=== PATIENT | male | born 1995 | race Caucasian/White ===

== ENCOUNTER 2016-04-13 13:54 | Emergency (ER) | payer OTHER ==
[2016-04-13 14:44] LABS: MEAN CORPUSCULAR HEMOGLOBIN 30.6 pg (27.0-33.0); MEAN CORPUSCULAR HGB CONC 34.4 g/dl (32.0-36.5); MEAN CORPUSCULAR VOLUME 88.8 fl (80.0-96.0); RED CELL DISTRIBUTION WIDTH 11.6 % (11.5-14.5); WHITE BLOOD COUNT 6.1 K/mm3 (4.0-10.0)
[2016-04-13 15:01] LABS: AMPHETAMINES LEVEL URINE NEGATIVE (NEGATIVE); BENZODIAZEPINES URINE NEGATIVE (NEGATIVE); COCAINE METABOLITE URINE NEGATIVE (NEGATIVE); CONTROL LINE INT CTR LINE PRESENT; METHADONE URINE NEGATIVE (NEGATIVE); OPIATES URINE NEGATIVE (NEGATIVE); TRICYCLIC ANTIDEPRESS URINE NEGATIVE (NEGATIVE)
[2016-04-13 15:21] LABS: ALBUMIN 4.2 GM/DL (3.2-5.2); ALBUMIN/GLOBULIN RATIO 1.35 (1.00-1.93); ALKALINE PHOSPHATASE 71 U/L (45-117); ALT/SGPT 23 U/L (12-78); ANION GAP 7 MEQ/L (8-16); AST/SGOT 19 U/L (15-37); BILIRUBIN,DIRECT 0.1 MG/DL (0.0-0.2); BILIRUBIN,TOTAL 0.5 MG/DL (0.2-1.0); BLOOD UREA NITROGEN 13 MG/DL (7-18); CARBON DIOXIDE LEVEL 29 MEQ/L (21-32); CHLORIDE LEVEL 106 MEQ/L (98-107); CREATININE FOR GFR 0.87 MG/DL (0.70-1.30); GLUCOSE, FASTING 79 MG/DL (70-105); POTASSIUM SERUM 4.2 MEQ/L (3.5-5.1); SODIUM LEVEL 142 MEQ/L (136-145); TOTAL PROTEIN 7.3 GM/DL (6.4-8.2)
[2016-04-13] MEDS ORDERED: FLUO20CA9 PO (17:35)
[2016-04-13] MEDS ORDERED: CLON-412 PO (17:35)
--- NOTE | 2016-04-13 20:15 | EDDOCDS ---
Physician Documentation [facility] Name: Dominick Mauro Age: 20 yrs Sex: Male : 1995 Arrival Date: 04/13/2016 Time: 13:54 Bed 31 Private MD: Disposition: 04/13/16 19:49 Discharged to Home/Self Care. Impression: Adjustment disorder with depressed mood. - Condition is Stable. - Discharge Instructions: Depression, Adult. - Medication Reconciliation, Local Pharmacy Hours form. - Follow up: Referral list, As provided by PFS; When: Call to arrange an appointment; Reason: Recheck today's complaints, Continuance of care. - Problem is an acute exacerbation. - Symptoms have improved. - Notes: Return to the ED for any further concerns Historical: - Allergies: no known allergies; - Home Meds: 1. Prozac 20 mg oral cap 1 cap once daily 2. Klonopin 1 mg Oral TbDL 1 tab 3 times per day - PMHx: Depression; Bipolar disorder; - PSHx: none; - Social history: Smoking status: Patient uses tobacco products, heavy tobacco smoker. No barriers to communication noted, The patient speaks fluent Chinese, Speaks appropriately for age. - Family history: Not pertinent. - : The pt / caregiver states he / she is not on anticoagulants. Home medication list is obtained from the patient. - Exposure Risk Screening:: None identified. Vital Signs: 04/13 16:30 BP 149 / 70; Pulse 64; Resp 18; Temp 98.2; Pulse Ox 100% ; Weight 77.56 kg / 170.99 lbs rn1 (R); Height 6 ft. 0 in. (182.88 cm) (R); Pain 0/10; 20:13 BP 146 / 80; Pulse 62; Resp 16; Temp 97.0(O); Pulse Ox 99% on R/A; Pain 0/10; rw1 16:30 Body Mass Index 23.19 (77.56 kg, 182.88 cm) rn1 MDM: 14:10 Consult PFS/PSA/Drywall Taper ordered. pml 14:10 Consult PFS/PSA/Drywall Taper: Patient's case requires discussion with on-call pml Psychiatrist ordered. 14:10 PSA/PFS to call Nursing Public Relations Director, to enter patient data on [place] Safe Act if patient pml involuntarily admitted or transferred for SI or HI ordered. 14:10 Confirm accurate psychiatric medication list and times of last dosage ordered. pml 14:10 Detain Pt Until Medically/PFS Cleared ordered. pml 14:11 Acetaminophen Level Ordered. EDMS 14:11 Basic Metabolic Profile Ordered. EDMS 14:11 Complete Blood Count Ordered. EDMS 14:11 Drug Eval Toxicology ED Only Ordered. EDMS 14:11 Ethyl Alcohol (ethanol) Ordered. EDMS 14:11 Liver Profile Ordered. EDMS 14:11 Salicylate Level Ordered. EDMS 14:11 Thyroid Stimulating Hormone Ordered. EDMS 15:13 Vital Signs ordered. le 16:16 Financial registration complete. zo 16:18 Acetaminophen Level Reviewed. le 16:18 Basic Metabolic Profile Reviewed. le 16:18 Drug Eval Toxicology ED Only Reviewed. le 16:18 Salicylate Level Reviewed. le 16:18 Complete Blood Count Reviewed. le 16:18 Ethyl Alcohol (ethanol) Reviewed. le 16:18 Liver Profile Reviewed. le 16:18 Thyroid Stimulating Hormone Reviewed. le 16:18 [facility] Payment Agreement was scanned into [employer] and attached to record. zo 16:19 BED REQUEST+ADM ordered. EDMS 16:19 The patient has been medically cleared for psychiatric evaluation, admission and/or le transfer. 16:27 REGULAR DIET PLASTIC YATES+DIET ordered. EDMS Signatures: Dispatcher [employer] EDDC Clovis Prabhakar LPN LPN rw1 Sarah Pandya Lisa, HANDBAG PARTS CUTTER HANDBAG PARTS CUTTER Kaylynn Mahmood RN RN pml The chart was reviewed and I authenticate all verbal orders and agree with the evaluation and treatment provided.Corrections: (The following items were deleted from the chart) 14:12 14:05 Allergies: no known allergies; pml pml 14:12 14:05 Home Meds: Prozac Oral 1 cap once daily; pml pml Attachments: 16:18 [facility] Payment Agreement zo MTDD
--- NOTE | 2016-04-13 20:15 | EDDOCDS ---
Nurse's Notes [facility] Name: Dominick Mauro Age: 20 yrs Sex: Male : 1995 Arrival Date: 04/13/2016 Time: 13:54 Bed 31 Private MD: Diagnosis: Adjustment disorder with depressed mood Presentation: 04/13 14:02 Presenting complaint: Patient states: PD picked pt up for parole issues and pt voiced pml vague thoughts of SI ongoing over last week. stated he was planning on checking himself into [facility] today to PD - when pt was told he was being brought to [facility] for eval he began to deny SI. Mental Health Triage Level: Level 2: The patient displays active suicidal ideations. The patient was brought to the ED for evaluation because of a legal pickup order. Adult Sepsis Screening: The patient does not have new or worsening altered mentation. Patient's respiratory rate is less than 22. Systolic blood pressure is greater than 100. Patient has a qSOFA score of 0- Negative Sepsis Screen. Mental Health Triage Level: Level 2:. Suicide/Homicide risk assessment- The patient admits to and/or has been reported to be having suicidal ideations. The patient reports that he/she has not been admitted to an inpatient mental health facility in the last 30 days. The patient reports that he/she has a recent or current history of substance abuse. The patient reports that he/she has a prior history of suicide attempt and/or organized plan. The patient reports that he/she has not experienced a significant life altering event in the last 30 days. The patient reports that he/she has adequate social support. The patient reports he/she has no significant chronic medical condition(s). Status: Patient is not a meat service team member or dependent. Transition of care: patient was not received from another setting of care. 14:02 Acuity: HARMAN Level 3 pml 14:02 Method Of Arrival: Police Car pml Triage Assessment: 14:05 General: Appears in no apparent distress, comfortable, Behavior is appropriate for age, pml cooperative. Pain: Denies pain. HIV screening NA for this visit Offered previously. The patient is triaged at the bedside. See Assessment in Nurses Notes section of ED record. Neurological: Level of Consciousness is awake, alert, Oriented to person, place, time. Cardiovascular: Capillary refill < 3 seconds. Respiratory: Airway is patent Respiratory effort is even, unlabored. GI: Abdomen is non- distended. Derm: Skin is pink, warm & dry. Historical: - Allergies: no known allergies; - Home Meds: 1. Prozac 20 mg oral cap 1 cap once daily 2. Klonopin 1 mg Oral TbDL 1 tab 3 times per day - PMHx: Depression; Bipolar disorder; - PSHx: none; - Social history: Smoking status: Patient uses tobacco products, heavy tobacco smoker. No barriers to communication noted, The patient speaks fluent Spanish, Speaks appropriately for age. - Family history: Not pertinent. - : The pt / caregiver states he / she is not on anticoagulants. Home medication list is obtained from the patient. - Exposure Risk Screening:: None identified. Screenin:14 Screening information is obtained from the patient. Fall risk: No risks identified. pml Assistance ADL's: requires no assistance with activities of daily living. Abuse/DV Screen: The patient / caregiver reports he/she is: not in a situation that causes fear, pain or injury. Nutritional screening: No deficits noted. Advance Directives: Currently, there is no health care proxy. home support is adequate. Assessment: 15:14 General: Appears in no apparent distress, Behavior is appropriate for age, cooperative. pml Neurological: Level of Consciousness is awake, alert, Oriented to person, place, time. Cardiovascular: Capillary refill < 3 seconds. Respiratory: Airway is patent Respiratory effort is even, unlabored. Derm: Skin is pink, warm & dry. 16:25 General: resting on stretcher, resps easy and unlabored, skin p/w/d. . pml 17:32 General: Appears in no apparent distress, Behavior is appropriate for age, cooperative. pml Neurological: Level of Consciousness is awake, alert, Oriented to person, place, time. Respiratory: Airway is patent Respiratory effort is even, unlabored. Derm: Skin is pink, warm & dry. 18:43 General: resting on stretcher, no apparent distress. resps easy and unlabored, skin pml p/w/d. 20:13 Reassessment: Patient appears in no apparent distress at this time. Patient denies pain rw1 at this time. Patient states feeling better. Patient states symptoms have improved. Mental Health Eval: 19:54 Mental health consult is initiated at 17:00. Status: The patient is not a meat service team member or dependent. [facility] Behavioral Health: The patient is not an established patient of [facility] Behavioral Health. Referral Information: Evaluation referral is generated by a police agency: Detective Evans and Maryan from [facility]. The patient was referred for evaluation because Pt was interrogated by police, made statement about harming self. Pt now denies any intent to harm self. 20:12 Disposition: Medically cleared for disposition by [facility] Consult ac is performed by phone with Dr Waqas Phillips MD. Vital Signs: 16:30 BP 149 / 70; Pulse 64; Resp 18; Temp 98.2; Pulse Ox 100% ; Weight 77.56 kg (R); Height rn1 6 ft. 0 in. (182.88 cm) (R); Pain 0/10; 20:13 BP 146 / 80; Pulse 62; Resp 16; Temp 97.0(O); Pulse Ox 99% on R/A; Pain 0/10; rw1 16:30 Body Mass Index 23.19 (77.56 kg, 182.88 cm) rn1 Vitals: 14:05 Log In time N/A- police car arrival. [facility] ED Course: 13:54 Patient visited by Wild Miller Reg. lg 13:54 Patient moved to Waiting lg 14:01 Patient moved to I7 / pml 14:04 Triage Initiated pml 14:07 Patient visited by Kaylynn Gottlieb,RN. pml 14:12 Patient visited by Kaylynn Gottlieb,LUKE. pml 14:19 Property secured in belongings bag- placed in locked locker. Placed in locker 9. dpm 14:36 [facility] Joe FNP is PHCP. le 14:41 Patient moved to 31 pml 14:43 Patient visited by Brook Joe FNP. le 14:43 Patient visited by Brook Joe FNP. le 14:50 Patient visited by Yeison Munson. dpm 15:12 Patient visited by Jose Perez PCA. jrd 15:14 The patient / caregiver is instructed regarding the plan of care and ED course. Patient pml has correct armband on for positive identification. Placed in gown. Bed in low position. Call light in reach. Side rails up X2. 15:14 No IV's were initiated during this patient's visit. No procedures done that require pml assistance. Labs drawn. (by ED staff). Sent per order to lab. 15:15 Patient visited by Kaylynn Gottlieb RN. pml 15:25 Patient visited by Jose Perez PCA. jrd 15:31 Patient visited by Jose Perez PCA. jrd 15:47 Patient visited by Jose Perez PCA. jrd 15:59 Patient visited by Jose Perez PCA. jrd 16:17 Patient visited by Jose Perez PCA. jrd 16:18 [facility] Payment Agreement was scanned into [employer] and attached to record. zo 16:21 Patient name changed from Dominick\S\D\S\Mauro\S\ to Dominick\S\ \S\Mauro. EDMS 16:25 Patient visited by Kaylynn Gottlieb RN. pml 16:48 Patient visited by Jose Perez PCA. jrd 16:54 Patient visited by Jose Perez PCA. jrd 17:16 Patient visited by Jose Perez PCA. jrd 17:22 Patient visited by Jose Perez PCA. jrd 17:32 Patient visited by Kaylynn Gottlieb RN. pml 17:46 Patient visited by Jose Perez PCA. jrd 18:12 Patient visited by Jose Perez PCA. jrd 18:33 Patient visited by Jose Perez PCA. jrd 18:43 Patient visited by Jose Perez PCA. jrd 18:43 Patient visited by Kaylynn Gottlieb RN. pml 18:58 Patient visited by Jose Perez PCA. jrd 19:11 Clovis Prabhakar LPN is Primary Nurse. rw1 19:13 Patient visited by Jose Perez PCA. jrd 19:28 Patient visited by Yeison Munson. dpm 19:47 Patient visited by Clovis Prabhakar LPN. rw1 19:49 Referral list, As provided by PFS is Referral Physician. le Order Results: Lab Order: Acetaminophen Level; SPEC'M 04/13/16 14:30 Test: ACETAMINOPHEN LEVEL; Value: < 2.0; Range: 10.0-30.0; Abnormal: Below low normal; Units: UG/ML; Status: F Lab Order: Basic Metabolic Profile; SPEC'M 04/13/16 14:30 Test: GLUCOSE, FASTING; Value: 79; Range: 70-105; Units: MG/DL; Status: F Test: BLOOD UREA NITROGEN; Value: 13; Range: 7-18; Units: MG/DL; Status: F Test: CREATININE FOR GFR; Value: 0.87; Range: 0.70-1.30; Units: MG/DL; Status: F Test: SODIUM LEVEL; Value: 142; Range: 136-145; Units: MEQ/L; Status: F Test: POTASSIUM SERUM; Value: 4.2; Range: 3.5-5.1; Units: MEQ/L; Status: F Test: CHLORIDE LEVEL; Value: 106; Range: 98-107; Units: MEQ/L; Status: F Test: CARBON DIOXIDE LEVEL; Value: 29; Range: 21-32; Units: MEQ/L; Status: F Test: ANION GAP; Value: 7; Range: 8-16; Abnormal: Below low normal; Units: MEQ/L; Status: F Test: CALCIUM LEVEL; Value: 9.0; Range: 8.5-10.1; Units: MG/DL; Status: F Lab Order: Complete Blood Count; SPEC'M 04/13/16 14:30 Test: WHITE BLOOD COUNT; Value: 6.1; Range: 4.0-10.0; Units: K/mm3; Status: F Test: RED BLOOD COUNT; Value: 5.08; Range: 4.30-6.10; Units: M/mm3; Status: F Test: HEMOGLOBIN; Value: 15.5; Range: 14.0-18.0; Units: g/dl; Status: F Test: HEMATOCRIT; Value: 45.1; Range: 42.0-52.0; Units: %; Status: F Test: MEAN CORPUSCULAR VOLUME; Value: 88.8; Range: 80.0-96.0; Units: fl; Status: F Test: MEAN CORPUSCULAR HEMOGLOBIN; Value: 30.6; Range: 27.0-33.0; Units: pg; Status: F Test: MEAN CORPUSCULAR HGB CONC; Value: 34.4; Range: 32.0-36.5; Units: g/dl; Status: F Test: RED CELL DISTRIBUTION WIDTH; Value: 11.6; Range: 11.5-14.5; Units: %; Status: F Test: PLATELET COUNT, AUTOMATED; Value: 208; Range: 150-450; Units: k/mm3; Status: F Lab Order: Drug Eval Toxicology ED Only; SPEC'M 04/13/16 14:30 Test: AMPHETAMINES LEVEL URINE; Value: NEGATIVE; Range: NEGATIVE; Status: F Test: BARBITURATES URINE; Value: NEGATIVE; Range: NEGATIVE; Status: F Test: BENZODIAZEPINES URINE; Value: NEGATIVE; Range: NEGATIVE; Status: F Test: CANNABINOIDS URINE; Value: POSITIVE; Range: NEGATIVE; Abnormal: Above high normal; Status: F Test: COCAINE METABOLITE URINE; Value: NEGATIVE; Range: NEGATIVE; Status: F Test: METHADONE URINE; Value: NEGATIVE; Range: NEGATIVE; Status: F Test: OPIATES URINE; Value: NEGATIVE; Range: NEGATIVE; Status: F Test: TRICYCLIC ANTIDEPRESS URINE; Value: NEGATIVE; Range: NEGATIVE; Status: F Test Note: ; FALSE POSITIVE RESULTS CAN BE CAUSED BY THE USE OF PANTOPRAZOLE (PROTONIX). Lab Order: Ethyl Alcohol (ethanol); SPEC'M 04/13/16 14:30 Test: ETHYL ALCOHOL (ETHANOL); Value: < 0.003; Range: 0.000-0.010; Units: %; Status: F Lab Order: Liver Profile; SPEC'M 04/13/16 14:30 Test: AST/SGOT; Value: 19; Range: 15-37; Units: U/L; Status: F Test: ALT/SGPT; Value: 23; Range: 12-78; Units: U/L; Status: F Test: ALKALINE PHOSPHATASE; Value: 71; Range: 45-117; Units: U/L; Status: F Test: BILIRUBIN,TOTAL; Value: 0.5; Range: 0.2-1.0; Units: MG/DL; Status: F Test: BILIRUBIN,DIRECT; Value: 0.1; Range: 0.0-0.2; Units: MG/DL; Status: F Test: TOTAL PROTEIN; Value: 7.3; Range: 6.4-8.2; Units: GM/DL; Status: F Test: ALBUMIN; Value: 4.2; Range: 3.2-5.2; Units: GM/DL; Status: F Test: ALBUMIN/GLOBULIN RATIO; Value: 1.35; Range: 1.00-1.93; Status: F Lab Order: Salicylate Level; SPEC'M 04/13/16 14:30 Test: SALICYLATE LEVEL; Value: < 1.7; Range: 5.0-30.0; Abnormal: Below low normal; Units: MG/DL; Status: F Lab Order: Thyroid Stimulating Hormone; SPEC'M 04/13/16 14:30 Test: THYROID STIMULATING HORMONE; Value: 0.984; Range: 0.463-3.98; Units: uIU/ML; Status: F Outcome: 19:49 Discharge ordered by Provider. le 20:13 Discharge Assessment: Patient awake, alert and oriented x 3. No cognitive and/or rw1 functional deficits noted. Patient verbalized understanding of disposition instructions. patient administered narcotics - no. The following High Risk Discharge criteria are identified: None. Discharged to home ambulatory, IN CAB. Condition: stable Condition: improved. Discharge instructions given to patient, Instructed on discharge instructions, follow up and referral plans. Demonstrated understanding of instructions, Pt was receptive of discharge instructions/ teaching. No special radiology studies were completed. 20:14 Patient left the ED. rw1 Signatures: Dispatcher [employer] EDMS Kurt Figueredo, PSA PSA Wild Treviño, Shmuel Reg lg Clovis Prabhakar,SOLITARIO HEALTH ADVISOR rw1 Sarah Pandya Lisa, AEROSPACE MEDICINE PHYSICIAN AEROSPACE MEDICINE PHYSICIANKaylynn TateRN RN pml Yeison Munson dpAlie Cortez, PRESS LOADER PRESS LOADER elp Jose Perez, PRESS LOADER PRESS LOADER Clovis Carroll rn1 Corrections: (The following items were deleted from the chart) 14:01 13:55 Infection Control. elp elp 14:01 14:00 Normal. elp elp 14:12 14:05 Allergies: no known allergies; pml pml 14:12 14:05 Home Meds: Prozac Oral 1 cap once daily; pml pml MTDD
--- NOTE | 2016-04-15 21:16 | EDDOCDS ---
Nurse's Notes [facility] Name: Dominick Mauro Age: 20 yrs Sex: Male : 1995 Arrival Date: 04/13/2016 Time: 13:54 Bed 31 Private MD: Diagnosis: Adjustment disorder with depressed mood Presentation: 04/13 14:02 Presenting complaint: Patient states: PD picked pt up for parole issues and pt voiced pml vague thoughts of SI ongoing over last week. stated he was planning on checking himself into [facility] today to PD - when pt was told he was being brought to [facility] for eval he began to deny SI. Mental Health Triage Level: Level 2: The patient displays active suicidal ideations. The patient was brought to the ED for evaluation because of a legal pickup order. Adult Sepsis Screening: The patient does not have new or worsening altered mentation. Patient's respiratory rate is less than 22. Systolic blood pressure is greater than 100. Patient has a qSOFA score of 0- Negative Sepsis Screen. Mental Health Triage Level: Level 2:. Suicide/Homicide risk assessment- The patient admits to and/or has been reported to be having suicidal ideations. The patient reports that he/she has not been admitted to an inpatient mental health facility in the last 30 days. The patient reports that he/she has a recent or current history of substance abuse. The patient reports that he/she has a prior history of suicide attempt and/or organized plan. The patient reports that he/she has not experienced a significant life altering event in the last 30 days. The patient reports that he/she has adequate social support. The patient reports he/she has no significant chronic medical condition(s). Status: Patient is not a service manager or dependent. Transition of care: patient was not received from another setting of care. 14:02 Acuity: HARMAN Level 3 pml 14:02 Method Of Arrival: Police Car pml Triage Assessment: 14:05 General: Appears in no apparent distress, comfortable, Behavior is appropriate for age, pml cooperative. Pain: Denies pain. HIV screening NA for this visit Offered previously. The patient is triaged at the bedside. See Assessment in Nurses Notes section of ED record. Neurological: Level of Consciousness is awake, alert, Oriented to person, place, time. Cardiovascular: Capillary refill < 3 seconds. Respiratory: Airway is patent Respiratory effort is even, unlabored. GI: Abdomen is non- distended. Derm: Skin is pink, warm & dry. Historical: - Allergies: no known allergies; - Home Meds: 1. Prozac 20 mg oral cap 1 cap once daily 2. Klonopin 1 mg Oral TbDL 1 tab 3 times per day - PMHx: Depression; Bipolar disorder; - PSHx: none; - Social history: Smoking status: Patient uses tobacco products, heavy tobacco smoker. No barriers to communication noted, The patient speaks fluent Kuwaiti, Speaks appropriately for age. - Family history: Not pertinent. - : The pt / caregiver states he / she is not on anticoagulants. Home medication list is obtained from the patient. - Exposure Risk Screening:: None identified. Screenin:14 Screening information is obtained from the patient. Fall risk: No risks identified. pml Assistance ADL's: requires no assistance with activities of daily living. Abuse/DV Screen: The patient / caregiver reports he/she is: not in a situation that causes fear, pain or injury. Nutritional screening: No deficits noted. Advance Directives: Currently, there is no health care proxy. home support is adequate. Assessment: 15:14 General: Appears in no apparent distress, Behavior is appropriate for age, cooperative. pml Neurological: Level of Consciousness is awake, alert, Oriented to person, place, time. Cardiovascular: Capillary refill < 3 seconds. Respiratory: Airway is patent Respiratory effort is even, unlabored. Derm: Skin is pink, warm & dry. 16:25 General: resting on stretcher, resps easy and unlabored, skin p/w/d. . pml 17:32 General: Appears in no apparent distress, Behavior is appropriate for age, cooperative. pml Neurological: Level of Consciousness is awake, alert, Oriented to person, place, time. Respiratory: Airway is patent Respiratory effort is even, unlabored. Derm: Skin is pink, warm & dry. 18:43 General: resting on stretcher, no apparent distress. resps easy and unlabored, skin pml p/w/d. 20:13 Reassessment: Patient appears in no apparent distress at this time. Patient denies pain rw1 at this time. Patient states feeling better. Patient states symptoms have improved. Mental Health Eval: 19:54 Mental health consult is initiated at 17:00. Status: The patient is not a service manager or dependent. [facility] Behavioral Health: The patient is not an established patient of [facility] Behavioral Health. Referral Information: Evaluation referral is generated by a police agency: Detective Evans and Maryan from [facility]. The patient was referred for evaluation because Pt was interrogated by police, made statement about harming self. Pt now denies any intent to harm self. 20:12 Disposition: Medically cleared for disposition by [facility] Consult ac is performed by phone with Dr Waqas Phillips MD. Vital Signs: 16:30 BP 149 / 70; Pulse 64; Resp 18; Temp 98.2; Pulse Ox 100% ; Weight 77.56 kg (R); Height rn1 6 ft. 0 in. (182.88 cm) (R); Pain 0/10; 20:13 BP 146 / 80; Pulse 62; Resp 16; Temp 97.0(O); Pulse Ox 99% on R/A; Pain 0/10; rw1 16:30 Body Mass Index 23.19 (77.56 kg, 182.88 cm) rn1 Vitals: 14:05 Log In time N/A- police car arrival. [facility] ED Course: 13:54 Patient visited by Wild Miller Reg. lg 13:54 Patient moved to Waiting lg 14:01 Patient moved to I7 / pml 14:04 Triage Initiated pml 14:07 Patient visited by Kaylynn Gottlieb,RN. pml 14:12 Patient visited by Kaylynn Gottlieb,LUKE. pml 14:19 Property secured in belongings bag- placed in locked locker. Placed in locker 9. dpm 14:36 [facility] Joe FNP is PHCP. le 14:41 Patient moved to 31 pml 14:43 Patient visited by Brook Joe FNP. le 14:43 Patient visited by Brook Joe FNP. le 14:50 Patient visited by Yeison Munson. dpm 15:12 Patient visited by Jose Perez PCA. jrd 15:14 The patient / caregiver is instructed regarding the plan of care and ED course. Patient pml has correct armband on for positive identification. Placed in gown. Bed in low position. Call light in reach. Side rails up X2. 15:14 No IV's were initiated during this patient's visit. No procedures done that require pml assistance. Labs drawn. (by ED staff). Sent per order to lab. 15:15 Patient visited by Kaylynn Gtotlieb RN. pml 15:25 Patient visited by Jose Perez PCA. jrd 15:31 Patient visited by Jose Perez PCA. jrd 15:47 Patient visited by Jose Perez PCA. jrd 15:59 Patient visited by Jose Perez PCA. jrd 16:17 Patient visited by Jose Perez PCA. jrd 16:18 [facility] Payment Agreement was scanned into [employer] and attached to record. zo 16:21 Patient name changed from Dominick\S\D\S\Mauro\S\ to Dominick\S\ \S\Mauro. EDMS 16:25 Patient visited by Kaylynn Gottlieb RN. pml 16:48 Patient visited by Jose Perez PCA. jrd 16:54 Patient visited by Jose Perez PCA. jrd 17:16 Patient visited by Jose Perez PCA. jrd 17:22 Patient visited by Jose Perez PCA. jrd 17:32 Patient visited by Kaylynn Gottlieb RN. pml 17:46 Patient visited by Jose Perez PCA. jrd 18:12 Patient visited by Jose Perez PCA. jrd 18:33 Patient visited by Jose Perez PCA. jrd 18:43 Patient visited by Jose Perez PCA. jrd 18:43 Patient visited by Kaylynn Gottlieb RN. pml 18:58 Patient visited by Jose Perez PCA. jrd 19:11 Clovis Prabhakar LPN is Primary Nurse. rw1 19:13 Patient visited by Jose Perez PCA. jrd 19:28 Patient visited by Yeison Munson. dpm 19:47 Patient visited by Clovis Prabhakar LPN. rw1 19:49 Referral list, As provided by PFS is Referral Physician. le 04/14 01:13 [facility] Legal paperwork was scanned into Lettuce and attached to record. jfb 09:57 T-Sheet-- Draft Copy was scanned into [employer] and attached to record. gb Attachments: 04/14 01:13 E Legal paperwork jfb Order Results: Lab Order: Acetaminophen Level; SPEC'M 04/13/16 14:30 Test: ACETAMINOPHEN LEVEL; Value: < 2.0; Range: 10.0-30.0; Abnormal: Below low normal; Units: UG/ML; Status: F Lab Order: Basic Metabolic Profile; SPEC'M 04/13/16 14:30 Test: GLUCOSE, FASTING; Value: 79; Range: 70-105; Units: MG/DL; Status: F Test: BLOOD UREA NITROGEN; Value: 13; Range: 7-18; Units: MG/DL; Status: F Test: CREATININE FOR GFR; Value: 0.87; Range: 0.70-1.30; Units: MG/DL; Status: F Test: SODIUM LEVEL; Value: 142; Range: 136-145; Units: MEQ/L; Status: F Test: POTASSIUM SERUM; Value: 4.2; Range: 3.5-5.1; Units: MEQ/L; Status: F Test: CHLORIDE LEVEL; Value: 106; Range: 98-107; Units: MEQ/L; Status: F Test: CARBON DIOXIDE LEVEL; Value: 29; Range: 21-32; Units: MEQ/L; Status: F Test: ANION GAP; Value: 7; Range: 8-16; Abnormal: Below low normal; Units: MEQ/L; Status: F Test: CALCIUM LEVEL; Value: 9.0; Range: 8.5-10.1; Units: MG/DL; Status: F Lab Order: Complete Blood Count; SPEC'M 04/13/16 14:30 Test: WHITE BLOOD COUNT; Value: 6.1; Range: 4.0-10.0; Units: K/mm3; Status: F Test: RED BLOOD COUNT; Value: 5.08; Range: 4.30-6.10; Units: M/mm3; Status: F Test: HEMOGLOBIN; Value: 15.5; Range: 14.0-18.0; Units: g/dl; Status: F Test: HEMATOCRIT; Value: 45.1; Range: 42.0-52.0; Units: %; Status: F Test: MEAN CORPUSCULAR VOLUME; Value: 88.8; Range: 80.0-96.0; Units: fl; Status: F Test: MEAN CORPUSCULAR HEMOGLOBIN; Value: 30.6; Range: 27.0-33.0; Units: pg; Status: F Test: MEAN CORPUSCULAR HGB CONC; Value: 34.4; Range: 32.0-36.5; Units: g/dl; Status: F Test: RED CELL DISTRIBUTION WIDTH; Value: 11.6; Range: 11.5-14.5; Units: %; Status: F Test: PLATELET COUNT, AUTOMATED; Value: 208; Range: 150-450; Units: k/mm3; Status: F Lab Order: Drug Eval Toxicology ED Only; SPEC'M 04/13/16 14:30 Test: AMPHETAMINES LEVEL URINE; Value: NEGATIVE; Range: NEGATIVE; Status: F Test: BARBITURATES URINE; Value: NEGATIVE; Range: NEGATIVE; Status: F Test: BENZODIAZEPINES URINE; Value: NEGATIVE; Range: NEGATIVE; Status: F Test: CANNABINOIDS URINE; Value: POSITIVE; Range: NEGATIVE; Abnormal: Above high normal; Status: F Test: COCAINE METABOLITE URINE; Value: NEGATIVE; Range: NEGATIVE; Status: F Test: METHADONE URINE; Value: NEGATIVE; Range: NEGATIVE; Status: F Test: OPIATES URINE; Value: NEGATIVE; Range: NEGATIVE; Status: F Test: TRICYCLIC ANTIDEPRESS URINE; Value: NEGATIVE; Range: NEGATIVE; Status: F Test Note: ; FALSE POSITIVE RESULTS CAN BE CAUSED BY THE USE OF PANTOPRAZOLE (PROTONIX). Lab Order: Ethyl Alcohol (ethanol); SPEC'M 04/13/16 14:30 Test: ETHYL ALCOHOL (ETHANOL); Value: < 0.003; Range: 0.000-0.010; Units: %; Status: F Lab Order: Liver Profile; SPEC'M 04/13/16 14:30 Test: AST/SGOT; Value: 19; Range: 15-37; Units: U/L; Status: F Test: ALT/SGPT; Value: 23; Range: 12-78; Units: U/L; Status: F Test: ALKALINE PHOSPHATASE; Value: 71; Range: 45-117; Units: U/L; Status: F Test: BILIRUBIN,TOTAL; Value: 0.5; Range: 0.2-1.0; Units: MG/DL; Status: F Test: BILIRUBIN,DIRECT; Value: 0.1; Range: 0.0-0.2; Units: MG/DL; Status: F Test: TOTAL PROTEIN; Value: 7.3; Range: 6.4-8.2; Units: GM/DL; Status: F Test: ALBUMIN; Value: 4.2; Range: 3.2-5.2; Units: GM/DL; Status: F Test: ALBUMIN/GLOBULIN RATIO; Value: 1.35; Range: 1.00-1.93; Status: F Lab Order: Salicylate Level; SPEC'M 04/13/16 14:30 Test: SALICYLATE LEVEL; Value: < 1.7; Range: 5.0-30.0; Abnormal: Below low normal; Units: MG/DL; Status: F Lab Order: Thyroid Stimulating Hormone; SPEC'M 04/13/16 14:30 Test: THYROID STIMULATING HORMONE; Value: 0.984; Range: 0.463-3.98; Units: uIU/ML; Status: F Outcome: 04/13 19:49 Discharge ordered by Provider. marsha 20:13 Discharge Assessment: Patient awake, alert and oriented x 3. No cognitive and/or rw1 functional deficits noted. Patient verbalized understanding of disposition instructions. patient administered narcotics - no. The following High Risk Discharge criteria are identified: None. Discharged to home ambulatory, IN CAB. Condition: stable Condition: improved. Discharge instructions given to patient, Instructed on discharge instructions, follow up and referral plans. Demonstrated understanding of instructions, Pt was receptive of discharge instructions/ teaching. No special radiology studies were completed. 20:14 Patient left the ED. rw1 Signatures: Dispatcher MedHost EDMS Kurt Figueredo, BRITTANY PSA Estrellita Juárez, Reg Reg gb Wild Miller, Reg Reg lg Clovis Prabhakar,SOLITARIO MOLD WASHER rw1 Sarah Pandya Lisa, BING COMMUNITY LIVING SPECIALIST Dione Bright PSA PSA jfb Quay, PaulinaRN RN Yeison Atkinson dpm, Erin, JEWEL BEARING MAKER JEWEL BEARING MAKER elp Jose Perez, JEWEL BEARING MAKER JEWEL BEARING MAKER Clovis Carroll rn1 Corrections: (The following items were deleted from the chart) 14:01 13:55 Infection Control. elp elp 14:01 14:00 Normal. elp elp 14:12 14:05 Allergies: no known allergies; pml pml 14:12 14:05 Home Meds: Prozac Oral 1 cap once daily; pml pml Chart Complete MTDD
--- NOTE | 2016-04-15 21:16 | EDDOCDS ---
Physician Documentation [facility] Name: Dominick Mauro Age: 20 yrs Sex: Male : 1995 Arrival Date: 04/13/2016 Time: 13:54 Bed 31 Private MD: Disposition: 04/13/16 19:49 Discharged to Home/Self Care. Impression: Adjustment disorder with depressed mood. - Condition is Stable. - Discharge Instructions: Depression, Adult. - Medication Reconciliation, Local Pharmacy Hours form. - Follow up: Referral list, As provided by PFS; When: Call to arrange an appointment; Reason: Recheck today's complaints, Continuance of care. - Problem is an acute exacerbation. - Symptoms have improved. - Notes: Return to the ED for any further concerns Historical: - Allergies: no known allergies; - Home Meds: 1. Prozac 20 mg oral cap 1 cap once daily 2. Klonopin 1 mg Oral TbDL 1 tab 3 times per day - PMHx: Depression; Bipolar disorder; - PSHx: none; - Social history: Smoking status: Patient uses tobacco products, heavy tobacco smoker. No barriers to communication noted, The patient speaks fluent Malay, Speaks appropriately for age. - Family history: Not pertinent. - : The pt / caregiver states he / she is not on anticoagulants. Home medication list is obtained from the patient. - Exposure Risk Screening:: None identified. Vital Signs: 04/13 16:30 BP 149 / 70; Pulse 64; Resp 18; Temp 98.2; Pulse Ox 100% ; Weight 77.56 kg / 170.99 lbs rn1 (R); Height 6 ft. 0 in. (182.88 cm) (R); Pain 0/10; 20:13 BP 146 / 80; Pulse 62; Resp 16; Temp 97.0(O); Pulse Ox 99% on R/A; Pain 0/10; rw1 16:30 Body Mass Index 23.19 (77.56 kg, 182.88 cm) rn1 MDM: 14:10 Consult PFS/PSA/Hose Operator ordered. pml 14:10 Consult PFS/PSA/Hose Operator: Patient's case requires discussion with on-call pml Psychiatrist ordered. 14:10 PSA/PFS to call Nursing Medical Detail Representative, to enter patient data on [place] Safe Act if patient pml involuntarily admitted or transferred for SI or HI ordered. 14:10 Confirm accurate psychiatric medication list and times of last dosage ordered. pml 14:10 Detain Pt Until Medically/PFS Cleared ordered. pml 14:11 Acetaminophen Level Ordered. EDMS 14:11 Basic Metabolic Profile Ordered. EDMS 14:11 Complete Blood Count Ordered. EDMS 14:11 Drug Eval Toxicology ED Only Ordered. EDMS 14:11 Ethyl Alcohol (ethanol) Ordered. EDMS 14:11 Liver Profile Ordered. EDMS 14:11 Salicylate Level Ordered. EDMS 14:11 Thyroid Stimulating Hormone Ordered. EDMS 15:13 Vital Signs ordered. le 16:16 Financial registration complete. zo 16:18 Acetaminophen Level Reviewed. le 16:18 Basic Metabolic Profile Reviewed. le 16:18 Drug Eval Toxicology ED Only Reviewed. le 16:18 Salicylate Level Reviewed. le 16:18 Complete Blood Count Reviewed. le 16:18 Ethyl Alcohol (ethanol) Reviewed. le 16:18 Liver Profile Reviewed. le 16:18 Thyroid Stimulating Hormone Reviewed. le 16:18 [facility] Payment Agreement was scanned into 1[employer]Way and attached to record. zo 16:19 BED REQUEST+ADM ordered. EDMS 16:19 The patient has been medically cleared for psychiatric evaluation, admission and/or le transfer. 16:27 REGULAR DIET PLASTIC YATES+DIET ordered. EDMS 04/14 01:13 [facility] Legal paperwork was scanned into 1[employer] and attached to record. jfb 09:57 T-Sheet-- Draft Copy was scanned into [employer] and attached to record. gb Signatures: Dispatcher MedHost EDWV Estrellita Bright, Reg Reg gb Clovis Prabhakar,PATENTED HOGSHEAD ASSEMBLER PATENTED HOGSHEAD ASSEMBLER rw1 Sarah Pandya Lisa, PUBLIC SPEAKING PROFESSOR PUBLIC SPEAKING PROFESSOR Dione Bright, PSA PSA Kaylynn Shields,RN LUKE pml The chart was reviewed and I authenticate all verbal orders and agree with the evaluation and treatment provided.Corrections: (The following items were deleted from the chart) 04/13 14:12 14:05 Allergies: no known allergies; pml pml 14:12 14:05 Home Meds: Prozac Oral 1 cap once daily; pml pml Attachments: 16:18 [facility] Payment Agreement zo 09:57 T-Sheet-- Draft Copy gb Chart Complete MTDD
--- NOTE | 2016-04-15 21:16 | EDDOCDS ---
Physician Documentation [facility] Name: Dominick Mauro Age: 20 yrs Sex: Male : 1995 Arrival Date: 04/13/2016 Time: 13:54 Bed 31 Private MD: Disposition: 04/13/16 19:49 Discharged to Home/Self Care. Impression: Adjustment disorder with depressed mood. - Condition is Stable. - Discharge Instructions: Depression, Adult. - Medication Reconciliation, Local Pharmacy Hours form. - Follow up: Referral list, As provided by PFS; When: Call to arrange an appointment; Reason: Recheck today's complaints, Continuance of care. - Problem is an acute exacerbation. - Symptoms have improved. - Notes: Return to the ED for any further concerns Historical: - Allergies: no known allergies; - Home Meds: 1. Prozac 20 mg oral cap 1 cap once daily 2. Klonopin 1 mg Oral TbDL 1 tab 3 times per day - PMHx: Depression; Bipolar disorder; - PSHx: none; - Social history: Smoking status: Patient uses tobacco products, heavy tobacco smoker. No barriers to communication noted, The patient speaks fluent Welsh, Speaks appropriately for age. - Family history: Not pertinent. - : The pt / caregiver states he / she is not on anticoagulants. Home medication list is obtained from the patient. - Exposure Risk Screening:: None identified. Vital Signs: 04/13 16:30 BP 149 / 70; Pulse 64; Resp 18; Temp 98.2; Pulse Ox 100% ; Weight 77.56 kg / 170.99 lbs rn1 (R); Height 6 ft. 0 in. (182.88 cm) (R); Pain 0/10; 20:13 BP 146 / 80; Pulse 62; Resp 16; Temp 97.0(O); Pulse Ox 99% on R/A; Pain 0/10; rw1 16:30 Body Mass Index 23.19 (77.56 kg, 182.88 cm) rn1 MDM: 14:10 Consult PFS/PSA/Telecommunication Systems Designer ordered. pml 14:10 Consult PFS/PSA/Telecommunication Systems Designer: Patient's case requires discussion with on-call pml Psychiatrist ordered. 14:10 PSA/PFS to call Nursing Clay Hoister, to enter patient data on [place] Safe [place] if patient pml involuntarily admitted or transferred for SI or HI ordered. 14:10 Confirm accurate psychiatric medication list and times of last dosage ordered. pml 14:10 Detain Pt Until Medically/PFS Cleared ordered. pml 14:11 Acetaminophen Level Ordered. EDMS 14:11 Basic Metabolic Profile Ordered. EDMS 14:11 Complete Blood Count Ordered. EDMS 14:11 Drug Eval Toxicology ED Only Ordered. EDMS 14:11 Ethyl Alcohol (ethanol) Ordered. EDMS 14:11 Liver Profile Ordered. EDMS 14:11 Salicylate Level Ordered. EDMS 14:11 Thyroid Stimulating Hormone Ordered. EDMS 15:13 Vital Signs ordered. le 16:16 Financial registration complete. zo 16:18 Acetaminophen Level Reviewed. le 16:18 Basic Metabolic Profile Reviewed. le 16:18 Drug Eval Toxicology ED Only Reviewed. le 16:18 Salicylate Level Reviewed. le 16:18 Complete Blood Count Reviewed. le 16:18 Ethyl Alcohol (ethanol) Reviewed. le 16:18 Liver Profile Reviewed. le 16:18 Thyroid Stimulating Hormone Reviewed. le 16:18 [facility] Payment Agreement was scanned into [employer] and attached to record. zo 16:19 BED REQUEST+ADM ordered. EDMS 16:19 The patient has been medically cleared for psychiatric evaluation, admission and/or le transfer. 16:27 REGULAR DIET PLASTIC YATES+DIET ordered. EDMS 04/14 01:13 [facility] Legal paperwork was scanned into [employer] and attached to record. jfb 09:57 T-Sheet-- Draft Copy was scanned into [employer] and attached to record. gb Signatures: Dispatcher MedHost EDAR Estrellita Bright, Reg Reg gb Clovis Prabhakar,BROKE WORKER BROKE WORKER rw1 Sarah Pandya Lisa, HADOOP INFRASTRUCTURE ARCHITECT HADOOP INFRASTRUCTURE ARCHITECT Dione Bright, PSA PSA Kaylynn Shields,RN LUKE pml The chart was reviewed and I authenticate all verbal orders and agree with the evaluation and treatment provided.Corrections: (The following items were deleted from the chart) 04/13 14:12 14:05 Allergies: no known allergies; pml pml 14:12 14:05 Home Meds: Prozac Oral 1 cap once daily; pml pml Attachments: 16:18 [facility] Payment Agreement zo 09:57 T-Sheet-- Draft Copy gb Chart Complete MTDD
== END 2016-04-13 20:14 | disposition home or self-care (01) ==
LOC: M ED 13:54
DX: F32.9 Major depressive disorder, single episode, unspecified (principal); R45.851 Suicidal ideations; F17.210 Nicotine dependence, cigarettes, uncomplicated; Z79.899 Other long term (current) drug therapy
CPT/HCPCS: 36415; 80048; 80076; 80306; 84443; 85027; 99283; G0480

== ENCOUNTER → 2019-09-02 | Outpatient (REF) | payer OTHER ==
[~2019-09-02] MED LIST: CLON-412 PO; FLUO20CA22 PO
== END ==
LOC: M LAB REF 12:22
PROVIDERS: ATTEND Surgery
DX: Z11.59 Encounter for screening for other viral diseases (principal)

== ENCOUNTER 2020-06-27 17:14 | Emergency (ER) | payer MEDICAID, OTHER ==
[~2020-06-27] VITALS: Ht 182.9 cm; Wt 88.7 kg
[2020-06-27] MEDS ORDERED: KETOROLAC TROMETHAMINE 10 MG TAB PO ONE (19:40)
[2020-06-27 22:31] VITALS: BP 159/83
--- NOTE | 2020-06-28 08:53 | REP ---
INDICATION: fell. COMPARISON: None. TECHNIQUE: Three views sacrum and coccyx. FINDINGS: There is no evidence of acute fracture, dislocation or intrinsic bone disease. IMPRESSION: No evidence of fracture or dislocation. Preliminary report provided by virtual Radiology at the time of the exam. <Electronically signed by Joshua Wise > 06/28/20 0849
--- NOTE | 2020-06-28 08:55 | REP ---
INDICATION: fell COMPARISON: None. TECHNIQUE: Four views left hand. FINDINGS: There is no evidence of acute fracture, dislocation, or intrinsic bone disease.There is a mild degree of ulnar minus variance. IMPRESSION: No fracture or dislocation. A preliminary report was provided by virtual Radiology at the time of the exam. <Electronically signed by Joshua Wise > 06/28/20 0800
== END 2020-06-27 22:34 | disposition home or self-care (01) ==
LOC: M ED 17:14
DX: S30.0XXA Contusion of lower back and pelvis, initial encounter (principal); S60.222A Contusion of left hand, initial encounter; W00.0XXA Fall on same level due to ice and snow, initial encounter; Y92.89 Other specified places as the place of occurrence of the external cause; Y93.01 Activity, walking, marching and hiking; Y99.8 Other external cause status; F41.9 Anxiety disorder, unspecified; F32.9 Major depressive disorder, single episode, unspecified; F17.210 Nicotine dependence, cigarettes, uncomplicated

== ENCOUNTER 2020-09-20 20:39 | Emergency (ER) | payer MEDICAID, OTHER ==
[~2020-09-20] VITALS: Ht 180.3 cm; Wt 86.4 kg
[2020-09-20 21:20] LABS: HEMATOCRIT 44.6 % (42.0-52.0); HEMOGLOBIN 14.7 g/dl (13.5-17.5); MEAN CORPUSCULAR HEMOGLOBIN 30.1 pg (27.0-33.0); MEAN CORPUSCULAR VOLUME 91.2 fl (80.0-96.0); PLATELET COUNT, AUTOMATED 238 10^3/uL (150-450); RED BLOOD COUNT 4.89 10^6/uL (4.30-6.10); WHITE BLOOD COUNT 8.8 10^3/uL (4.0-10.0)
[2020-09-20 21:45] LABS: ACETAMINOPHEN LEVEL < 2.0 UG/ML (10.0-30.0); ALBUMIN 4.1 GM/DL (3.2-5.2); ALT/SGPT 21 U/L (12-78); BILIRUBIN,DIRECT 0.1 MG/DL (0.0-0.2); BILIRUBIN,TOTAL 0.4 MG/DL (0.2-1.0); BLOOD UREA NITROGEN 12 MG/DL (7-18); CALCIUM LEVEL 8.7 MG/DL (8.5-10.1); CARBON DIOXIDE LEVEL 28 MEQ/L (21-32); CHLORIDE LEVEL 107 MEQ/L (98-107); CREATININE FOR GFR 0.88 MG/DL (0.70-1.30); ETHYL ALCOHOL (ETHANOL) < 0.003 % (0.000-0.010); GLOMERULAR FILTRATION RATE > 60.0 (>60); GLUCOSE, FASTING 93 MG/DL (70-100); POTASSIUM SERUM 3.9 MEQ/L (3.5-5.1); SALICYLATE LEVEL < 1.7 MG/DL (5.0-30.0); SODIUM LEVEL 139 MEQ/L (136-145); THYROID STIMULATING HORMONE 0.432 uIU/ML (0.358-3.740); TOTAL PROTEIN 7.4 GM/DL (6.4-8.2)
[2020-09-20 21:47] LABS: AMPHETAMINES LEVEL URINE NEGATIVE (NEGATIVE); BARBITURATES URINE NEGATIVE (NEGATIVE); BENZODIAZEPINES URINE NEGATIVE (NEGATIVE); CANNABINOIDS URINE POSITIVE (NEGATIVE); COCAINE METABOLITE URINE NEGATIVE (NEGATIVE); METHADONE URINE NEGATIVE (NEGATIVE); OPIATES URINE NEGATIVE (NEGATIVE); PHENCYCLIDINE URINE NEGATIVE (NEGATIVE)
[2020-09-20 22:45] VITALS: BP 131/84
== END 2020-09-20 22:47 | disposition home or self-care (01) ==
LOC: M ED 20:39
DX: F33.9 Major depressive disorder, recurrent, unspecified (principal); F17.210 Nicotine dependence, cigarettes, uncomplicated

== ENCOUNTER 2022-10-02 16:19 | Emergency (ER) | payer MEDICAID, OTHER, SELFPAY ==
[~2022-10-02] VITALS: Ht 182.9 cm; Wt 88.6 kg
[2022-10-02 16:20] VITALS: BP 136/67; TEMP 96.8; O2SAT 98
== END 2022-10-02 17:20 | disposition left against medical advice (07) ==
LOC: M ED 16:19
DX: Z53.21 Procedure and treatment not carried out due to patient leaving prior to being seen by health care provider (principal)

== ENCOUNTER 2022-10-02 23:24 | Emergency (ER) | payer OTHER ==
[~2022-10-02] VITALS: Ht 185.4 cm; Wt 86.0 kg
[2022-10-02 23:41] VITALS: BP 145/77; TEMP 98; O2SAT 97
== END 2022-10-03 02:41 | disposition left against medical advice (07) ==
LOC: M ED 23:24 → EDBD 23:24 → M ED 10-03 02:41
DX: S69.91XA Unspecified injury of right wrist, hand and finger(s), initial encounter (principal); X58.XXXA Exposure to other specified factors, initial encounter; Y92.89 Other specified places as the place of occurrence of the external cause; Y93.89 Activity, other specified; Y99.8 Other external cause status; Z53.21 Procedure and treatment not carried out due to patient leaving prior to being seen by health care provider